=== PATIENT | female | born 1975 | race Caucasian/White ===

== ENCOUNTER 2017-10-12 16:12 | Emergency (ER) | payer SELFPAY ==
[~2017-10-12] VITALS: Ht 177.8 cm; Wt 113.4 kg
--- NOTE | 2017-10-12 16:31 | ED.ADGEN ---
Past History Past Medical History: Kidney Stones, Liver Disease (Fatty Liver) Past Surgical History: Hysterectomy Smoking: Non-smoker Drug Use: None Adult General Chief Complaint Chief Complaint Right sided back pain HPI HPI The patient has a history of prior kidney stones more than 2 years ago. She had sudden onset of right back pain early this morning reminiscent of her prior kidney stones. Her pain has been constant, unrelenting, radiating to her right flank and right lower quadrant. She's had nausea, no vomiting. She's had no fevers. She denies dysuria or hematuria. Review of Systems Review of Systems Constitutional: Denies fever or chills Eyes: Denies change in visual acuity, redness, or eye pain HENT: Denies nasal congestion or sore throat Respiratory: Denies cough or shortness of breath Cardiovascular: Denies chest pain or palpitations GI: with RLQ abdominal pain, nausea,no vomiting, bloody stools or diarrhea : Denies dysuria or hematuria, with right low back and right flank pain Musculoskeletal: with right low back pain or joint pain Integument: Denies rash or skin lesions Neurologic: Denies headache, focal weakness or sensory changes Endocrine: Denies polyuria or polydipsia All other systems were reviewed and found to be within normal limits, except as documented in this note. Current Medications Current Medications Current Medications Medications (Trade) Dose Ordered Sig/Dl Start Time Stop Time Status Last Admin Dose Admin Fentanyl Citrate (Fentanyl 2ml Vial) 100 mcg 1X ONCE 10/12/17 17:15 10/12/17 17:16 DC 10/12/17 17:10 100 MCG Levofloxacin (Levaquin) 500 mg 1X ONCE 10/12/17 20:00 10/12/17 20:01 DC 10/12/17 20:03 500 MG Morphine Sulfate (Morphine 4mg Syringe) 4 mg 1X ONCE 10/12/17 18:45 10/12/17 18:46 DC 10/12/17 18:42 4 MG Ondansetron HCl (Zofran) 4 mg 1X ONCE 10/12/17 17:15 10/12/17 17:16 DC 10/12/17 17:09 4 MG Sodium Chloride 1,000 ml @ 1,000 mls/hr 1X ONCE 10/12/17 17:15 10/12/17 18:14 DC 10/12/17 17:09 1,000 MLS/HR Allergies Allergies Allergies Coded Allergies Type Severity Reaction Last Updated Verified ketorolac Allergy Intermediate hives 10/12/17 Yes metoclopramide Allergy Intermediate anxiety 10/12/17 Yes prochlorperazine Allergy Intermediate anxiety 10/12/17 Yes Physical Exam Physical Exam Constitutional: Well developed, well nourished, no acute distress, non-toxic appearance. HENT: Normocephalic, atraumatic, bilateral external ears normal, oropharynx moist, no oral exudates, nose normal. Eyes: PERRLA, EOMI, conjunctiva normal, no discharge. Neck: Normal range of motion, no tenderness, supple, no stridor. Cardiovascular:Heart rate regular rhythm, no murmur Lungs & Thorax: Bilateral breath sounds clear to auscultation Abdomen: Bowel sounds normal, soft, with mild RLQ tenderness, no masses, no pulsatile masses. Skin: Warm, dry, no erythema, no rash. Back: Right lower back tenderness, with right CVA and right flank tenderness. Extremities: No tenderness, no cyanosis, no clubbing, ROM intact, no edema. Neurologic: Alert and oriented X 3, normal motor function, normal sensory function, no focal deficits noted. Psychologic: Affect normal, judgement normal, mood normal. Current Patient Data Vital Signs Vital Signs Date Time Temp Pulse Resp B/P (MAP) Pulse Ox O2 Delivery O2 Flow Rate FiO2 10/12/17 20:15 98.1 122 20 139/80 (99) 98 Room Air Lab Results Laboratory Tests Test 10/12/17 17:00 10/12/17 18:16 White Blood Count 9.7 x10^3/uL (4.0-11.0) Red Blood Count 5.19 x10^6/uL (3.50-5.40) Hemoglobin 15.3 g/dL (12.0-15.5) Hematocrit 44.8 % (36.0-47.0) Mean Corpuscular Volume 86 fL (79-100) Mean Corpuscular Hemoglobin 30 pg (25-35) Mean Corpuscular Hemoglobin Concent 34 g/dL (31-37) Red Cell Distribution Width 14.8 % (11.5-14.5) H Platelet Count 463 x10^3/uL (140-400) H Neutrophils (%) (Auto) 77 % (31-73) H Lymphocytes (%) (Auto) 15 % (24-48) L Monocytes (%) (Auto) 6 % (0-9) Eosinophils (%) (Auto) 2 % (0-3) Basophils (%) (Auto) 0 % (0-3) Neutrophils # (Auto) 7.5 x10^3uL (1.8-7.7) Lymphocytes # (Auto) 1.5 x10^3/uL (1.0-4.8) Monocytes # (Auto) 0.6 x10^3/uL (0.0-1.1) Eosinophils # (Auto) 0.2 x10^3/uL (0.0-0.7) Basophils # (Auto) 0.0 x10^3/uL (0.0-0.2) Urine Collection Type Unknown Urine Color Yellow Urine Clarity Cloudy Urine pH 5.5 Urine Specific Bunch 1.020 Urine Protein Neg (NEG-TRACE) Urine Glucose (UA) Neg mg/dL (NEG) Urine Ketones (Stick) Neg mg/dL (NEG) Urine Blood Large (NEG) Urine Nitrite Neg (NEG) Urine Bilirubin Neg (NEG) Urine Urobilinogen Dipstick 0.2 mg/dL (0.2 mg/dL) Urine Leukocyte Esterase Trace (NEG) Urine RBC >40 /HPF (0-2) Urine WBC 1-4 /HPF (0-4) Urine Squamous Epithelial Cells Many /LPF Urine Bacteria Few /HPF (0-FEW) Urine Test Negative (NEG) Sodium Level 140 mmol/L (136-145) Potassium Level 3.5 mmol/L (3.5-5.1) Chloride Level 103 mmol/L (98-107) Carbon Dioxide Level 25 mmol/L (21-32) Anion Gap 12 (6-14) Blood Urea Nitrogen 8 mg/dL (7-20) Creatinine 0.7 mg/dL (0.6-1.0) Estimated GFR (Cockcroft-Gault) 92.2 BUN/Creatinine Ratio 11 (6-20) Glucose Level 127 mg/dL (70-99) H Calcium Level 9.2 mg/dL (8.5-10.1) Total Bilirubin 0.3 mg/dL (0.2-1.0) Aspartate Amino Transferase (AST) 76 U/L (15-37) H Alanine Aminotransferase (ALT) 81 U/L (14-59) H Alkaline Phosphatase 111 U/L (46-116) Total Protein 7.7 g/dL (6.4-8.2) Albumin 4.0 g/dL (3.4-5.0) Albumin/Globulin Ratio 1.1 (1.0-1.7) EKG EKG [] Radiology/Procedures Radiology/Procedures [address] [address] IMAGING REPORT Signed PATIENT: CANDELARIA MATHEWS ACCOUNT: [id number] : 1975 LOCATION: ER AGE: 41 SEX: F EXAM STATUS: PRE ER ORD. PHYSICIAN: MATTIE ALLEN MD REASON: right flank pain stone study PROCEDURE: CT ABDOMEN PELVIS WO CONTRAST PQRS Compliance Statement: One or more of the following individualized dose reduction techniques were utilized for this examination: 1. Automated exposure control 2. Adjustment of the mA and/or kV according to patient size 3. Use of iterative reconstruction technique CT ABDOMEN PELVIS WO CONTRAST Clinical Indication: Right flank pain x 1 day, hx of stones 2016 Comparison: None. Technique: Helical CT imaging of the abdomen and pelvis is performed without IV or oral contrast. Findings: There are a few subcentimeter groundglass nodules in the posterior left lower lobe that are probably infectious/inflammatory. There is a calcified granuloma in the right middle lobe. Cardiac size is normal. There is moderate fatty infiltration of the liver. Craniocaudal dimension of the liver is 27.8 cm. There is hepatomegaly. Cholecystectomy. The spleen, pancreas, adrenal glands, and abdominal aorta caliber are normal. There is no renal calculus. There is no perinephric stranding or hydronephrosis. The distal right ureter passes immediately adjacent to a phlebolith but no soft tissue rim sign is seen. Urinary bladder is mostly decompressed. Stomach unremarkable. No dilated small bowel. There is no colon wall thickening. Appendix not seen, if not surgically absent, no secondary signs of appendicitis. Hysterectomy. No pelvic free fluid. No acute bone abnormality. IMPRESSION: 1. There are a few subcentimeter groundglass nodules in the posterior left lower lobe that are probably infectious/inflammatory. 2. No obstructive uropathy. 3. Moderate fatty infiltration of the liver. Hepatomegaly. Electronically signed by: Curtis Cardozo MD (10/12/2017 6:07 PM) [facility] DICTATED AND SIGNED BY: CURTIS CARDOZO MD DATE: 10/12/17 510 CC: MATTIE ALLEN MD; NON,STAFF ~ Course & Med Decision Making Course & Med Decision Making Patient presents with complaints of right-sided back pain since this morning consistent with prior kidney stone disease DDx-kidney stone, UTI, flank pain, muscle strain, pyelonephritis The patient was stable emergency department improved after IV Toradol and morphine. Labs were unremarkable. UA showed hematuria with bacteria. Abdominal pelvic CT scan showed left lower lobe pulmonary nodules, fatty liver, no obstructive kidney stones seen. The cause of the patient right sided back and flank pain is unclear. Patient has hematuria with bacteria in urine. Patient also had left lower lobe pulmonary process. Patient was given her lab and CT scan results and advised to follow-up with outpatient PCP, Pulmonary and Urology Patient was given Levaquin orally. Patient given prescriptions for Levaquin, Rinard and Phenergan Final Impression Final Impression Clinical impression Right sided back pain Hematuria UTI Left Pulmonary nodules Atypical pneumonia Fatty Liver Dragon Disclaimer Dragon Disclaimer This electronic medical record was generated, in whole or in part, using a voice recognition dictation system. Departure Departure: Impression: Primary Impression: Right-sided back pain Additional Impressions: Hematuria Left lower lobe pulmonary nodule UTI (urinary tract infection) Atypical pneumonia Fatty liver Disposition: HOME, SELF-CARE Condition: STABLE Referrals: ZUNILDA PATTERSON MD Follow-up tomorrow for further evaluation of hematuria BRENT BANKS MD Follow-up tomorrow for further evaluation Patient Instructions: Flank Pain, Hematuria, Adult, Liver Disease Diet, Pneumonia, Adult, [id number], Pulmonary Nodule, [id number], Urinary Tract Infection, Child Additional Instructions: Follow-up with your PCP, Dr. Kahn and Pulmonology tomorrow for further evaluation of your pulmonary nodules Dr. Rosette Juares Address: [address] [place] [address] [address] [place] [address] If he develop worse pain, vomiting, fevers, shortness of breath, weakness, lightheadedness, bleeding return to the emergency department immediately Scripts Promethazine Hcl (PROMETHAZINE HCL) 12.5 Mg Tablet 1 TAB PO Q6HRS for 3 Days, #12 TAB Prov: MATTIE ALLEN MD 10/12/17 Hydrocodone Bit/Acetaminophen (NORCO 5-325 TABLET) 1 Each Tablet 1 TAB PO PRN Q6HRS PRN for PAIN for 5 Days, #20 TAB 0 Refills Prov: MATTIE ALLEN MD 10/12/17 Levofloxacin (LEVAQUIN) 500 Mg Tablet 1 TAB PO DAILY, #7 TAB Prov: MATTIE ALLEN MD 10/12/17 MATTIE ALLEN MD Oct 12, 2017 16:31
[2017-10-12] MEDS ORDERED: ONDANSETRON PF 4 MG/2 ML VIAL. IV ONE (17:15)
[2017-10-12] MEDS ORDERED: IV NORMAL SALINE 1,000ML 1,000 ML IV ONE (17:15)
[2017-10-12 17:25] LABS: BASO % 0 % (0-3); EOS # 0.2 x10^3/uL (0.0-0.7); EOS % 2 % (0-3); HEMATOCRIT 44.8 % (36.0-47.0); HEMOGLOBIN 15.3 g/dL (12.0-15.5); LYMPH # 1.5 x10^3/uL (1.0-4.8); LYMPH % 15 % (24-48); MEAN CORPUSCULAR HEMOGLOBIN 30 pg (25-35); MEAN CORPUSCULAR HGB CONC 34 g/dL (31-37); MEAN CORPUSCULAR VOLUME 86 fL (79-100); MONO # 0.6 x10^3/uL (0.0-1.1); MONO % 6 % (0-9); NEUT # 7.5 x10^3uL (1.8-7.7); NEUT % 77 % (31-73); PLATELET COUNT 463 x10^3/uL (140-400); RED BLOOD COUNT 5.19 x10^6/uL (3.50-5.40); RED CELL DISTRIBUTION WIDTH 14.8 % (11.5-14.5); WHITE BLOOD COUNT 9.7 x10^3/uL (4.0-11.0)
[2017-10-12 17:52] LABS: BILIRUBIN,URINE NEG (NEG); CLARITY,URINE CLOUDY; COLOR,URINE YELLOW; GLUCOSE,URINE NEG (NEG); NITRITE,URINE NEG (NEG); RBC,URINE >40 /HPF (0-2); UROBILINOGEN,URINE 0.2 mg/dL (0.2 mg/dL)
[2017-10-12 17:53] LABS: BACTERIA,URINE FEW /HPF (0-FEW); SQUAMOUS EPITHELIAL CELL,UR MANY /LPF; U PREG PATIENT NEGATIVE (NEG)
--- NOTE | 2017-10-12 18:10 | RAD ---
PQRS Compliance Statement: One or more of the following individualized dose reduction techniques were utilized for this examination: 1. Automated exposure control 2. Adjustment of the mA and/or kV according to patient size 3. Use of iterative reconstruction technique CT ABDOMEN PELVIS WO CONTRAST Clinical Indication: Right flank pain x 1 day, hx of stones 2016 Comparison: None. Technique: Helical CT imaging of the abdomen and pelvis is performed without IV or oral contrast. Findings: There are a few subcentimeter groundglass nodules in the posterior left lower lobe that are probably infectious/inflammatory. There is a calcified granuloma in the right middle lobe. Cardiac size is normal. There is moderate fatty infiltration of the liver. Craniocaudal dimension of the liver is 27.8 cm. There is hepatomegaly. Cholecystectomy. The spleen, pancreas, adrenal glands, and abdominal aorta caliber are normal. There is no renal calculus. There is no perinephric stranding or hydronephrosis. The distal right ureter passes immediately adjacent to a phlebolith but no soft tissue rim sign is seen. Urinary bladder is mostly decompressed. Stomach unremarkable. No dilated small bowel. There is no colon wall thickening. Appendix not seen, if not surgically absent, no secondary signs of appendicitis. Hysterectomy. No pelvic free fluid. No acute bone abnormality. IMPRESSION: 1. There are a few subcentimeter groundglass nodules in the posterior left lower lobe that are probably infectious/inflammatory. 2. No obstructive uropathy. 3. Moderate fatty infiltration of the liver. Hepatomegaly. Electronically signed by: Curtis Cardozo MD (10/12/2017 6:07 PM) [facility]
[2017-10-12] MEDS ORDERED: MORPHINE SULFATE 4 MG/ML DISP.SYRIN. IV ONE (18:45)
[2017-10-12 18:46] LABS: ALBUMIN/GLOBULIN RATIO 1.1 (1.0-1.7); CALCIUM 9.2 mg/dL (8.5-10.1); CREATININE 0.7 mg/dL (0.6-1.0); GFR 92.2; POTASSIUM 3.5 mmol/L (3.5-5.1); TOTAL BILIRUBIN 0.3 mg/dL (0.2-1.0); TOTAL PROTEIN 7.7 g/dL (6.4-8.2)
[2017-10-12] MEDS ORDERED: LEVO500T59 PO (19:41)
[2017-10-12] MEDS ORDERED: HYDR-971 PO (19:41)
[2017-10-12] MEDS ORDERED: PROM12.56 PO (19:41)
[2017-10-12] MEDS ORDERED: levoFLOXacin 500 MG TABLET PO ONE (20:00)
[2017-10-12 20:15] VITALS: BP 139/80
== END 2017-10-12 20:17 | disposition home or self-care (01) ==
LOC: ER 16:12
DX: J18.9 Pneumonia, unspecified organism (principal); R91.8 Other nonspecific abnormal finding of lung field; K76.0 Fatty (change of) liver, not elsewhere classified; N39.0 Urinary tract infection, site not specified; R31.9 Hematuria, unspecified; Z87.442 Personal history of urinary calculi; Z90.710 Acquired absence of both cervix and uterus; Z88.8 Allergy status to other drugs, medicaments and biological substances
CPT/HCPCS: 36415; 74176; 80053; 81001; 81025; 85025; 87086; 96372; 96374; 96375; 99285; J2270; J2405; J3010; J7030